=== PATIENT | male | born 1960 | race Caucasian/White ===

== ENCOUNTER 2018-08-19 14:22 | Emergency (ER) | payer MEDICAID, OTHER ==
[2018-08-19] MEDS ORDERED: ACETAMINOPHEN 500 MG TAB PO ONE (14:59)
[2018-08-19] MEDS ORDERED: DIAZEPAM 5 MG/ML 1 ML SYR IVP ONE (14:59)
--- NOTE | 2018-08-19 15:06 | EDPHY ---
H & P Stated Complaint: bilat arm pain dc'd from [facility] yesterday Time Seen by Provider: 08/19/18 14:50 HPI/ROS: CHIEF COMPLAINT: Bilateral arm and shoulder pain HISTORY OF PRESENT ILLNESS: The patient is a 58-year-old man who was released from [facility] yesterday for the same complaint. He is complaining of bilateral diffuse arm and shoulder pain and swelling in both hands. He has a history of alcoholism and quit drinking about 10 days ago. He is on Antabuse. He has with him discharge paperwork from [facility] diagnosed with thiamine deficiency and ataxia. He has a new prescription for amlodipine and thiamine. He also states that he was receiving oxycodone in the hospital but he was not given a prescription for this. He states that he noticed the swelling in his hands returned just before he was discharged with a told it was because of the fluid he had been receiving during his stay. He denies any trauma. No fever. No chest pain or shortness of breath. No neck pain. No headache. He has bruising on his forearms that he states is secondary to IV attempts. He denies history of liver kidney disease. He states that he has been taking amlodipine but it is not helping. He does report that they did MRI of his brain while he was there and he was told was normal. Severity: Moderate Modifying factors: None REVIEW OF SYSTEMS: Constitutional: denies: chills, fever, recent illness, recent injury EENTM: denies: blurred vision, double vision, nose congestion Respiratory: denies: cough, shortness of breath Cardiac: denies: chest pain, irregular heart rate, lightheadedness, palpitations Gastrointestinal/Abdominal: denies: abdominal pain, diarrhea, nausea, vomiting, blood streaked stools Genitourinary: denies: dysuria, frequency, hematuria, pain Musculoskeletal: denies: joint pain, muscle pain Skin: denies: lesions, rash, jaundice, bruising Neurological: denies: headache, numbness, paresthesia, tingling, dizziness, weakness Hematologic/Lymphatic: denies: blood clots, easy bleeding, easy bruising Immunologic/allergic: denies: HIV/AIDS, transplant 10 systems reviewed and negative except as noted EXAM: GENERAL: Well-appearing, well-nourished and in no acute distress. HEAD: Atraumatic, normocephalic. EYES: Pupils equal round and reactive to light, extraocular movements intact, sclera anicteric, conjunctiva are normal. ENT: TMs normal, nares patent, oropharynx clear without exudates. Moist mucous membranes. NECK: Normal range of motion, supple without lymphadenopathy or JVD. LUNGS: Breath sounds clear to auscultation bilaterally and equal. No wheezes rales or rhonchi. HEART: Regular rate and rhythm without murmurs, rubs or gallops. ABDOMEN: Soft, nontender, normoactive bowel sounds. No guarding, no rebound. No masses appreciated. BACK: No CVA tenderness, no spinal tenderness, step-offs or deformities EXTREMITIES: Apparent pain with movement of upper arms. Pain and forearms, triceps biceps and traps. No limitation with passive range of motion. No tenderness. No erythema. Mild swelling to both hands seen over the dorsal aspect. NEUROLOGICAL: Cranial nerves II through XII grossly intact. Normal speech, normal gait. 5/5 strength, normal movement in all extremities, normal sensation , normal reflexes PSYCH: Normal mood, normal affect. SKIN: Shallow bruising to forearms bilaterally. Warm, dry, normal turgor, no visible rashes or lesions. Source: Patient Exam Limitations: No limitations - Personal History Current Tetanus Diphtheria and Acellular Pertussis (TDAP): No - Medical/Surgical History Hx Asthma: No Hx Chronic Respiratory Disease: No Hx Diabetes: No Hx Cardiac Disease: No Hx Renal Disease: No Hx Cirrhosis: No Hx Alcoholism: No Hx HIV/AIDS: No Hx Splenectomy or Spleen Trauma: No Other PMH: denies quit etoh 2 weeks ago - Social History Smoking Status: Never smoked Constitutional: Initial Vital Signs Temperature (C) 37.1 C 08/19/18 14:29 Heart Rate 94 08/19/18 14:29 Respiratory Rate 18 08/19/18 14:29 Blood Pressure 148/93 H 08/19/18 14:29 O2 Sat (%) 96 08/19/18 14:29 O2 Delivery Mode Room Air Allergies/Adverse Reactions: ibuprofen Allergy (Verified 08/19/18 14:28) Penicillins Allergy (Verified 08/19/18 14:28) Home Medications: Medication Instructions Recorded Amlodipine Besylate 08/19/18 Disulfiram 08/19/18 Thiamine HCl 01/08/19 Toradol 10mg tab 08/19/18 predniSONE 60 mg PO DAILY #15 tab 08/19/18 Medical Decision Making - Diagnostics EKG Interpretation: An EKG obtained and was read and documented in trace view. Please see trace view for full reading and report. Sinus rhythm, less than [address] elevation V2 only. Similar to previous EKG seen in outside hospital. Imaging Results: Imaging Impressions Chest/Thorax CTA 08/19/18 16:02 Impression: 1. Negative for pulmonary embolus. 2. Hyperenhancing subcentimeter lesion within the liver, incompletely characterized but probably represents a flash filling hemangioma. Findings and recommendations discussed with ZANE RODRIGUEZ at 1712 hour, 2018. Extremity Venous Study 08/19/18 16:03 Impression: No deep venous thrombosis bilateral arm. Findings and recommendations discussed with Emergency Department physician, ZANE RODRIGUEZ at 16:50 hour, 08/19/2018. Final report concurs with initial preliminary interpretation. Imaging: Discussed imaging studies w/ call circuit worker Radiologist ED Course/Re-evaluation: The will obtain lab work initially and treat with muscle relaxants. Will attempt to obtain records from [facility] about imaging and diagnostics they performed there. 4:00 p.m. Have not yet received a records from [facility]. The patient's D- dimer is elevated. Other lab work is reassuring. Will obtain CT angio as well as ultrasound of source to rule out DVTs or PEs. 4:30 p.m. I did receive records from [facility]. The patient was hospitalized couple weeks ago at [facility] for hyponatremia and alcohol withdrawal. He was in the hospital for 5 days treated with phenobarbital and Librium and then discharged for 2 days. Also treated with free water restriction. He states that he had fallen twice while at home during those 2 days. He return to [facility] and was complaining of pain in his shoulders and wrists. He is found have an elevated C reactive protein. 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 They did x-ray his chest and both shoulders and these were unremarkable. Also CT angiography of head and neck were done and there is no acute intracranial or cervical abnormality found. He did have degenerative changes at C5-6 and 7. He had an MRI of his brain that was read as negative. They also document x-rays done previously at [facility] of his hands and wrists that they reviewed and were normal. They document that he requested opiate pain medication but was declined. 5:15 p.m. patient's Dopplers and CT are all reassuring. Lab work is all very reassuring. He feels a bit better after Tylenol and Valium. He does not wish to have prescription of either of these. We discussed other treatments for what has previously been diagnosed as reactive arthritis. Will try a small dose of steroids although I warned him this could worsen his swelling. He and his family understand and agree with this plan. They declined further workup or treatment. They are eager to go home. We discussed indications for returning. Some of these pains can also be from the cervical spine disease. Will refer him to spine doctor. I also encouraged him to keep taking his Thiamin. He is ambulating here in the ER without significant difficulty. Differential Diagnosis: Partial list of the Differential diagnosis considered include but were not limited to; arthritis, DVT and although unlikely based on the history and physical exam, I also considered PE, dissection. I discussed these differential diagnoses and the plan with the patient as well as the usual and expected course. The patient understands that the diagnosis is provisional and that in medicine we are not always correct and that further workup is often warranted. Usual and customary warnings were given. All of the patient's questions were answered. The patient was instructed to return to the emergency department should the symptoms at all worsen or return, otherwise to followup with the physician as we discussed. - Data Points Laboratory Results: Laboratory Results 08/19/18 15:31 08/19/18 15:31 08/19/18 08/19/18 08/19/18 15:35 15:31 15:31 WBC RBC Hgb Hct MCV MCH MCHC RDW Plt Count MPV Neut % (Auto) Lymph % (Auto) [place] % (Auto) Eos % (Auto) Baso % (Auto) Nucleat RBC Rel Count Absolute Neuts (auto) Absolute Lymphs (auto) Absolute Monos (auto) Absolute Eos (auto) Absolute Basos (auto) Absolute Nucleated RBC Immature Gran % Immature Gran # PT 13.8 SEC SEC (12.0-15.0) INR 1.04 (0.83-1.16) APTT 28.1 SEC SEC (23.0-38.0) D-Dimer 0.64 ug/mLFEU H ug/mLFEU (0.00-0.50) Sodium 136 mEq/L mEq/L (135-145) Potassium 4.6 mEq/L mEq/L (3.5-5.2) Chloride 106 mEq/L mEq/L (97-110) Carbon Dioxide 21 mEq/l L mEq/l (22-31) Anion Gap 9 mEq/L mEq/L (6-14) BUN 18 mg/dL mg/dL (7-23) Creatinine 1.1 mg/dL mg/dL (0.7-1.3) Estimated GFR > 60 Glucose 100 mg/dL mg/dL (70-100) Calcium 9.5 mg/dL mg/dL (8.5-10.4) Total Bilirubin 1.3 mg/dL mg/dL (0.1-1.4) Conjugated Bilirubin 0.4 mg/dL mg/dL (0.0-0.5) Unconjugated Bilirubin 0.9 mg/dL mg/dL (0.0-1.1) AST 32 IU/L IU/L (17-59) ALT 80 IU/L H IU/L (21-72) Alkaline Phosphatase 47 IU/L IU/L (38-126) Creatine Kinase 37 IU/L IU/L (0-224) POC Troponin I 0.00 ng/mL ng/mL (0.00-0.08) Total Protein 7.1 g/dL g/dL (6.3-8.2) Albumin 4.0 g/dL g/dL (3.5-5.0) 08/19/18 15:31 WBC 7.61 10^3/uL 10^3/uL (3.80-9.50) RBC 4.68 10^6/uL 10^6/uL (4.40-6.38) Hgb 15.2 g/dL g/dL (13.7-17.5) Hct 43.4 % % (40.0-51.0) MCV 92.7 fL fL (81.5-99.8) MCH 32.5 pg pg (27.9-34.1) MCHC 35.0 g/dL g/dL (32.4-36.7) RDW 11.3 % L % (11.5-15.2) Plt Count 309 10^3/uL 10^3/uL (150-400) MPV 8.7 fL fL (8.7-11.7) Neut % (Auto) 73.0 % % (39.3-74.2) Lymph % (Auto) 11.8 % L % (15.0-45.0) [place] % (Auto) 13.0 % % (4.5-13.0) Eos % (Auto) 1.3 % % (0.6-7.6) Baso % (Auto) 0.5 % % (0.3-1.7) Nucleat RBC Rel Count 0.0 % % (0.0-0.2) Absolute Neuts (auto) 5.55 10^3/uL 10^3/uL (1.70-6.50) Absolute Lymphs (auto) 0.90 10^3/uL L 10^3/uL (1.00-3.00) Absolute Monos (auto) 0.99 10^3/uL H 10^3/uL (0.30-0.80) Absolute Eos (auto) 0.10 10^3/uL 10^3/uL (0.03-0.40) Absolute Basos (auto) 0.04 10^3/uL 10^3/uL (0.02-0.10) Absolute Nucleated RBC 0.00 10^3/uL 10^3/uL (0-0.01) Immature Gran % 0.4 % % (0.0-1.1) Immature Gran # 0.03 10^3/uL 10^3/uL (0.00-0.10) PT INR APTT D-Dimer Sodium Potassium Chloride Carbon Dioxide Anion Gap BUN Creatinine Estimated GFR Glucose Calcium Total Bilirubin Conjugated Bilirubin Unconjugated Bilirubin AST ALT Alkaline Phosphatase Creatine Kinase POC Troponin I Total Protein Albumin Medications Given: Discontinued Medications Acetaminophen (Tylenol) 1,000 mg PO EDNOW ONE Stop: 08/19/18 15:00 Last Admin: 08/19/18 15:37 Dose: 1,000 mg Diazepam (Valium) 5 mg IVP EDNOW ONE Stop: 08/19/18 15:00 Last Admin: 08/19/18 15:38 Dose: 5 mg Prednisone (Prednisone) 60 mg PO EDNOW ONE Stop: 08/19/18 17:22 Last Admin: 08/19/18 17:25 Dose: 60 mg Point of Care Test Results: Chemistry 08/19/18 15:35 POC Troponin I 0.00 ng/mL ng/mL (0.00-0.08) Departure - Departure Disposition: Home, Routine, Self-Care Clinical Impression: Degenerative disc disease, cervical, Reactive arthritis, Thiamine deficiency Condition: Fair Instructions: Prednisone (By mouth), Degenerative Disc Disease (ED), Arthritis (ED), Thiamine (By mouth) Referrals: NONE *PRIMARY CARE P,. [Unknown] - As per Instructions Luis Swanson MD [Medical Doctor] - 5-7 days, call for appt. Jacqueline Hsu MD [Medical Doctor] - 2-3 days, if not improved Prescriptions: predniSONE 60 mg PO DAILY #15 tab
--- NOTE | 2018-08-19 15:27 | CPEKG ---
Test Reason : OPEN Blood Pressure : / mmHG Vent. Rate : 090 BPM Atrial Rate : 090 BPM P-R Int : 133 ms QRS Dur : 086 ms QT Int : 354 ms P-R-T Axes : 044 -58 009 degrees QTc Int : 433 ms Sinus rhythm Probable left atrial enlargement Left anterior fascicular block Minimal ST elevation, anterior leads Confirmed by Antonio Andrade ([id number] on 08/19/2018 3:26:32 PM Referred By: Confirmed By:Antonio Andrade
[2018-08-19 15:40] LABS: PLATELET COUNT 309 10^3/uL (150-400)
[2018-08-19 15:55] LABS: INR 1.04 (0.83-1.16); PROTIME(PATIENT) 13.8 SEC (12.0-15.0)
[2018-08-19 16:00] LABS: CREATINE KINASE 37 IU/L (0-224)
[2018-08-19] MEDS ORDERED: IOPAMIDOL (ISOVUE 370) 100 ML BTL IV ONE (16:40)
[2018-08-19] MEDS ORDERED: predniSONE 20 MG TAB PO ONE (17:21)
[2018-08-19 17:34] VITALS: BP 162/109
== END 2018-08-19 17:40 | disposition home or self-care (01) ==
DX: M50.11 Cervical disc disorder with radiculopathy, high cervical region (principal); M19.90 Unspecified osteoarthritis, unspecified site; E51.9 Thiamine deficiency, unspecified
CPT/HCPCS: 84484-ER; 96374; J3360; J7512; Q9967